=== PATIENT | male | born 2000 ===

== ENCOUNTER 2020-09-24 11:30 | Outpatient (RCR) | payer OTHER, SELFPAY ==
[2020-09-08 12:22] VITALS: BMI 19.8
--- NOTE | 2020-09-08 12:44 | PC.ADMIT ---
Patient is a 20 year old transgendered female who was referred from [facility] program to [facility] program d/t increased depression and for continued stabilization. Patient reportedly was hospitalized psychiatrically in June d/t experiencing their first psychotic episode presenting delusional and paranoid. Patient feels that Vyvanse and Cymbalta caused her symptoms. Patient reports trauma history. Patient dx with Bipolar I manic with psychotic features. Patient is alert and oriented x4. Calm and cooperative. Presents with depressed mood and affect. Denied SI, AH, VH, or paranoid thoughts. Patient gave verbal permission to email him a copy of his safety plan. Patient has the crisis number if needed. Patient's medications reconciled with patient and patient's pharmacy. Last filled [place] on 08/03/20 30 day supply. Patient reports she is taking medications as prescribed.
--- NOTE | 2020-09-08 12:51 | P.HPPSP_ITS ---
HPI Chief Complaint: Bipolar 1 with Psychotic features Sources of Information: patient interviewed HPI Narrative: The patient is a 20 year old AA transgendered female, single, with no children, currently unemployed, living with his mother and sister with good social support, referred from [facility] for exacerbation of depression. The patient reported that she carries the diagnosis of Bipolar disorder, she was recently admitted at [facility] in June 2020 for a manic episode with psychotic sy mptoms. Currently, she complained of depressed mood, lack of energy, anhedonia and feelings of worthlesness. She denies psychotic symptoms or milana at this moment. During the intake interview, she reported that she had past episodes of depression when she was 16 and she was started on antidepressants, then diagnosed of ADHD and she had Cymbalta and stimulants; she stated that her only admission was induced by Vyvanse and Cymbalta. Past Psychiatric History: Her first psychiatric contact was at the age of 16 and she received Zoloft, later she had Lexapro. A psychiatrist in [facility] diagnosed of ADHD and she was on Adderall. Her first psychiatric admission was in June 2020 for an episode of milana with psychosis at [facility]. Medical Evaluation Reviewed: No [facility] Medical History Migraine Family History: Denies Social History: The patient is the oldest of 2 siblings, her milestones were achieved at expected age, she was raised by her parents. Her parents when she was young. She attended regular school, she graduated and attended college. Substance History: Denies Trauma History: Reported past trauma but refused to elaborate. Diagnostics Vital Signs (24Hr): Body Mass Index 19.8 Meds/Allergies Allergies Allergies Allergy/AdvReac Type Severity Reaction Status Date / Time No Known Allergies Allergy Verified 09/08/20 12:21 Mental Status Exam Mental Status Exam Patient Appearance: Well Grooomed Patient Orientation: Person, Place, Time and Situation Level of Consciousness: Awake and Alert Patient Behavior: Appropriate and Cooperative Mood Description: Calm and Appropriate Affect Description: Constricted Patient Cognition Impaired: No Ability to Follow Directions: Good Speech Pattern: Clear Memory Description: Intact Hallucinations: None Delusions: Not Present Thought Process: Goal Oriented and Linear Thought Content: positive for Intact Judgement: Fair Assessment & Plan Assessment & Plan (1) Bipolar 1 disorder: Status: Acute Code(s): F31.9 - Bipolar disorder, unspecified Assessment and Plan: The patient is a young transgendered female with bipolar disorder, with mood symptoms since she was 16, recently admitted for a manic episode with psychosis, referred to our program for treatment of a new episode of depression. She has never tried Wellbutrin in the past. Plan: Continue [place] LITH, BMP, TSH, U/TOX Start Wellbutrin SR 100 mg po bid F/U in 1 week Certification I certify that partial hospital treatment is medically necessary due to the symptoms and problems resulting from the patient's mental illness and the failure to treat the patient at the partial hospital level of care would likely result in the patient requiring inpatient psychiatric care which could not be prevented at a less intensive level of care. Telehealth Telehealth Location of provider rendering services: practice address Location of patient: address on file Patient Identification confirmed using: Name, : Yes Telehealth method: video Patient verbally consented to treatment: Yes Patient verbally consented to billing insurance company: Yes Patient informed of any privacy concerns related to visit: No Time spent with patient (mins): 45
--- NOTE | 2020-09-09 14:39 | PC.NURSE ---
Clients case opened in treatment team
--- NOTE | 2020-09-13 14:05 | HO.PHPPROGNO ---
Subjective Subjective Date of Service: 09/13/20 Reason For Visit: Bipolar 1 with Psychotic features Interim History: The patient has not noticed any changes on her mood, still mildly depressed but no safety issues. She recently got her Invega Sustenna. We discussed options and she agreed to keep the same treatment for depression and reassess next week. Medication Compliance: Yes Side effects from medications: No Attending Groups: Yes Mental Status Exam Mental Status Exam Patient Appearance: Well Grooomed Patient Orientation: Person, Place, Time and Situation Level of Consciousness: Awake Patient Behavior: Appropriate Mood Description: Calm Affect Description: Withdrawn Patient Cognition Impaired: No Ability to Follow Directions: Good Speech Pattern: Clear Memory Description: Intact Hallucinations: None Delusions: Not Present Thought Process: Goal Oriented Thought Content: positive for Poverty of Content Judgement: Fair Diagnostics Vital Signs (24Hr): Body Mass Index 19.8 Assessment & Plan Assessment & Plan (1) Bipolar 1 disorder: Status: Acute Code(s): F31.9 - Bipolar disorder, unspecified Assessment and Plan: Young adult tranfendered female with bipolar disorder, with depression. Plan: Keep Wellbutrin SR 100 mg po bid, assess next week if we have to increase. Certification I certify that partial hospital treatment is medically necessary due to the symptoms and problems resulting from the patient's mental illness and the failure to treat the patient at the partial hospital level of care would likely result in the patient requiring inpatient psychiatric care which could not be prevented at a less intensive level of care. Greater than 50% of the session was spent on counseling and/or coordination of care Discharge Plan Discharge Attending provider: Elias Collazo Primary Care Provider: Brittni Gonzalez Medications: Continued lithium carbonate 600 mg Capsule 600 mg PO BEDTIME 30 Days Qty: 30 RF: 0 lithium carbonate 300 mg Tablet 300 mg PO DAILY 30 Days Qty: 30 RF: 0 bupropion HCl [Wellbutrin SR] 100 mg tablet sustained-release 12 hr 100 mg PO BID 7 Days Qty: 14 RF: 0 No Action spironolactone 100 mg Tablet 100 mg PO BID RF: 0 estradiol 1 mg Tablet 2 mg PO BID RF: 0 Invega Sustenna 156 mg/mL Syringe 156 mg IM QMONTH RF: 0 Referrals: Brittni Gonzalez MD [Primary Care Provider] - 1 Week Telehealth Telehealth Location of provider rendering services: practice address Location of patient: address on file Patient Identification confirmed using: Name, : No Telehealth method: video Patient verbally consented to treatment: Yes Patient verbally consented to billing insurance company: Yes Patient informed of any privacy concerns related to visit: No Time spent with patient (mins): 15
--- NOTE | 2020-09-23 14:16 | PC.NURSE ---
Patient called and stated she needs a refill on Wellbutrin as she ran out. Patient stated she had a new prescriber appointment with Luanne Marroquin at [facility] last week and has a f/u appointment with her next week. Patient did not complete lab orders that were ordered at [facility] including lithium level and TSH. During [facility] pt was reminded that she had labs due and educated about the need to complete. She stated her new prescriber ordered labs and she will be completing those lab orders. Dr Collazo and Ani SKY are aware.
--- NOTE | 2020-09-24 10:28 | PC.NURSE ---
Patient is being discharged from the program today. Reviewed medication list with patient, patient reports she is taking as prescribed however stated she met with is new prescriber last week and stated Invega Sustenna is being discontinued. Patient feeling ready for discharge. Denied SI or thoughts to harm herself.
--- NOTE | 2020-09-24 15:18 | PC.NURSE ---
I called and left a message with the clients therapist, Mariela oliva clients discharge
--- NOTE | 2020-09-24 17:26 | P.PNPSP_ITS ---
Subjective Subjective Date of Service: 09/24/20 Reason For Visit: Bipolar 1 with Psychotic features Medical Problems Affecting Mental Status: No Interim History: Patient reports feeling that medications are working, although states I suppose they are working okay . Did not wish to make any changes, as today is last day in program, and is scheduled to see outpatient provider next week. Feels has gained some helpful information and coping skills by participation in program. Medication Compliance: Yes Side effects from medications: No Attending Groups: Yes Review of Systems Review of Systems Yes all other systems are reviewed and are negative Mental Status Exam Mental Status Exam Narrative: Presents with flat, blunted affect, with constricted range of emotion. Patient Appearance: Well Grooomed Patient Orientation: Person, Place, Time and Situation Level of Consciousness: Awake and Appropriate Patient Behavior: Appropriate Mood Description: Calm, Constricted and Blunted Affect Description: Blunted and Flat Patient Cognition Impaired: No Ability to Follow Directions: Excellent Speech Pattern: Clear Memory Description: Intact Hallucinations: None Delusions: Not Present Thought Process: Intact Thought Content: positive for Intact Judgement: Good Judgement and Insight: States is feeling overall improved psychiatric symptoms. Plans to see outpatient psyc provider next week. Diagnostics Vital Signs (24Hr): Body Mass Index 19.8 Assessment & Plan Certification Patient overall doing well, and Requested refill of Wellbutrin SR 100mg BID, script sent to pharmacy for 7 day supply, until outpatient provider appointment. No other concerns. I certify that partial hospital treatment is medically necessary due to the symptoms and problems resulting from the patient's mental illness and the failure to treat the patient at the partial hospital level of care would likely result in the patient requiring inpatient psychiatric care which could not be prevented at a less intensive level of care. Greater than 50% of the session was spent on counseling and/or coordination of care Discharge Plan Discharge Attending provider: Elias Collazo Primary Care Provider: Brittni Gonzalez Additional Instructions: MARY Pressley 09/27/20 [facility] Ivett APRN [facility] 10/01/20 Medications: New bupropion HCl [Wellbutrin SR] 100 mg tablet sustained-release 12 hr 100 mg PO BID Qty: 3 RF: 0 bupropion HCl [Wellbutrin SR] 100 mg tablet sustained-release 12 hr 100 mg PO BID 7 Days Qty: 14 RF: 0 Continued lithium carbonate 600 mg Capsule 600 mg PO BEDTIME 30 Days Qty: 30 RF: 0 lithium carbonate 300 mg Tablet 300 mg PO DAILY 30 Days Qty: 30 RF: 0 bupropion HCl [Wellbutrin SR] 100 mg tablet sustained-release 12 hr 100 mg PO BID 7 Days Qty: 14 RF: 0 No Action spironolactone 100 mg Tablet 100 mg PO BID RF: 0 estradiol 1 mg Tablet 2 mg PO BID RF: 0 Invega Sustenna 156 mg/mL Syringe 156 mg IM QMONTH RF: 0 Referrals: Brittni Gonzalez MD [Primary Care Provider] - 1 Week Stand Alone Forms: Patient Portal Discharge page Telehealth Telehealth Location of provider rendering services: practice address Location of patient: address on file Patient Identification confirmed using: Name, : Yes Telehealth method: video Patient verbally consented to treatment: Yes Patient verbally consented to billing insurance company: Yes Patient informed of any privacy concerns related to visit: Yes Time spent with patient (mins): 25
== END 2020-09-27 08:42 | disposition home or self-care (01) ==
LOC: HO.PHPA 11:30
PROVIDERS: PCP Internal Medicine; Visit Provider Psychiatry & Neurology Psychiatry
DX: F31.9 Bipolar disorder, unspecified (principal); F64.0 Transsexualism; Z79.899 Other long term (current) drug therapy
CPT/HCPCS: 90791; 90853; 99212